=== PATIENT | female | born 1950 | race Native Hawaiian/Other Pacific Islander ===

== ENCOUNTER → 2018-03-28 09:35 | Outpatient (CLI) | payer MEDICARE, OTHER, SELFPAY ==
--- NOTE | 2018-03-28 | DI.NM.S_ITS ---
PROCEDURE: NM BONE SCAN WHOLE BODY RADIOPHARMACEUTICAL: 20.4 mCi Tc-99m MDP IV. INDICATIONS: RIGHT HIP PAIN TECHNIQUE: Delayed whole-body scintigrams were obtained approximately 3-4 hours after intravenous injection of radiotracer. Anterior and posterior views were acquired from vertex to feet. Additional left and right oblique views of the hips and knees were obtained. COMPARISON: [facility] [place], CR, XR PELVIS WITH LATERAL HIP RIGHT, 03/19/2018, 14:42. FINDINGS: Photopenic defect in keeping with the patient's right hip arthroplasty is present. There is no suspicious associated tracer activity. There is mild tracer uptake at the tip of the femoral stem component although probably postoperative appearance. Physiologic activity is present within the bladder. There is mild scoliosis. Bilateral periarticular tracer activity about the knees and ankles is likely arthritic in nature. No suspicious tracer activity. Bilateral L5 facet tracer uptake is likely degenerative IMPRESSION: Status post right hip arthroplasty. No suspicious associated tracer activity. Bilateral knee and ankle arthritic tracer uptake. Mild scoliosis. Dictated by: Christopher Ramirez M.D. on 03/28/2018 at 17:02 Approved by: Christopher Ramirez M.D. on 03/28/2018 at 17:06
== END ==
PROVIDERS: Family Provider Family Medicine; PCP Family Medicine; Visit Provider Orthopaedic Surgery
DX: M25.551 Pain in right hip (principal); M41.9 Scoliosis, unspecified; Z96.641 Presence of right artificial hip joint
CPT/HCPCS: 78306; A9503